=== PATIENT | female | born 2000 | race Caucasian/White ===

== ENCOUNTER 2021-09-03 00:03 | Emergency (ER) | payer BC ==
[~2021-09-03] VITALS: Ht 152.4 cm; Wt 72.7 kg
[2021-09-03 00:11] VITALS: TEMP 98.4
[2021-09-03] MEDS ORDERED: PERCOCET 325 MG1 TA2 PO (02:17)
[2021-09-03] MEDS ORDERED: FLEXERIL 1010 MG/TAB PO (02:17)
[2021-09-03] MEDS ORDERED: MOTRIN 800800 MG/TAB PO (02:17)
[2021-09-03 02:36] VITALS: BP 124/78; PULSE 76
== END 2021-09-03 02:36 | disposition home or self-care (01) ==
LOC: COL.ER 00:03
DX: M54.50 Low back pain, unspecified (principal); F17.210 Nicotine dependence, cigarettes, uncomplicated; X50.0XXA Overexertion from strenuous movement or load, initial encounter
CPT/HCPCS: J1630; J2270; J2360